=== PATIENT | male | born 1940 | race Caucasian/White ===

== ENCOUNTER 2016-06-22 10:22 | Outpatient (CLI) | payer MEDICARE, BC ==
[2016-06-22 16:57] LABS: Microalbumin-Urine Less than 1.0 mg/dL
== END 2016-06-22 10:23 | disposition home or self-care (01) ==
LOC: MADLAB 10:22
PROVIDERS: ATTEND Family Medicine
DX: E11.9 Type 2 diabetes mellitus without complications (principal); E78.2 Mixed hyperlipidemia
CPT/HCPCS: 36415; 82043

== ENCOUNTER 2016-06-25 07:07 | Outpatient (CLI) | payer MEDICARE, BC ==
[2016-06-25 07:42] LABS: ALT (SGPT) 27 U/L (0-55); AST (SGOT) 24 U/L (5-34); Albumin 3.9 g/dL (3.4-4.8); Alkaline Phosphatase 62 U/L (40-150); Anion Gap 15 mmol/L (10-20); BUN (Urea Nitrogen) 15 mg/dL (8.4-25.7); Bilirubin, Total 0.6 mg/dL (0.2-1.2); Calc. Creatinine Clearance 0 mL/min (70-130); Calcium 9.4 mg/dL (7.8-10.44); Carbon Dioxide 28 mmol/L (23-31); Cardiac Risk 2.8 (Less than 4.5); Chloride 104 mmol/L (98-107); Cholesterol 142 mg/dL (< 200 Desired); Estimated GFR-MDRD 65; Globulin 2.3 g/dL (2.4-3.5); Glucose 118 mg/dL (83-110); HDL Cholesterol 50 mg/dL (>60 Neg Risk); LDL Cholesterol, Calculated 74 mg/dL; Potassium 4.7 mmol/L (3.5-5.1); Protein, Total 6.2 g/dL (5.8-8.1); Sodium 142 mmol/L (136-145); Triglycerides 90 mg/dL (Less than 150)
[2016-06-25 08:11] LABS: Bilirubin Negative (Negative); Blood, Urine Negative (Negative); Clarity Clear (Clear); Glucose, Urine (Dipstick) Negative (Negative); Leukocyte Negative (Negative); Nitrite Negative (Negative); Protein, Urine (Dipstick) Negative (Neg-Trace); Urobilinogen 0.2 mg/dL (0.2-1.0)
[2016-06-25 08:14] LABS: Bacteria/HPF Rare-Few HPF (None Seen); RBC/HPF 0-3 HPF (0-3); Squamous Epithelial None Seen HPF (0-3); WBC/HPF 0-3 HPF (0-3)
[2016-06-25 08:24] LABS: #Basophils 0.1 thou/uL (0.0-0.2); #Eosinphils 0.2 thou/uL (0.0-0.7); #Lymphocytes 1.5 thou/uL (1.20-3.40); #Monocytes 0.6 thou/uL (0.11-0.59); #Neutrophils 3.5 thou/uL (1.40-6.50); %Basophils 1.8 % (0.0-1.0); %Eosinophils 3.4 % (0.0-10.0); %Lymphocytes 25.4 % (21.0-51.0); %Neutrophils 59.5 % (42.0-75.0); Giant Platelets SLIGHT; Hemoglobin 16.8 g/dL (14.0-18.0); MDiff Complete? YES; Mean Corpuscular HGB CONC 32.8 g/dL (32.0-36.0); Mean Corpuscular Hemoglobin 31.3 pg (27.0-31.0); Mean Corpuscular Volume 95.4 fl (80.0-94.0); Mean Platelet Volume 10.8 fL (7.4-10.4); Platelet Count 116 thou/uL (130-400); RBC Distribution Width 13.3 % (11.5-14.5); Red Blood Cell (RBC) Count 5.36 mill/uL (4.70-6.10); White Blood Cell (WBC) Count 5.8 thou/uL (4.8-10.8)
== END 2016-06-25 07:08 | disposition home or self-care (01) ==
LOC: MADLAB 07:07
PROVIDERS: ATTEND Family Medicine
DX: E78.2 Mixed hyperlipidemia (principal); E11.9 Type 2 diabetes mellitus without complications
CPT/HCPCS: 36415; 80053; 80061; 81001; 85025

== ENCOUNTER 2016-12-04 08:44 | Outpatient (CLI) | payer MEDICARE, BC ==
--- NOTE | 2016-12-04 10:28 | RAD ---
SUPINE ABDOMINAL RADIOGRAPH: Date: 12-04-16 History: Renal stone. FINDINGS: Left lateral aspect of the abdomen is excluded from view on this examination. There is mild elevatio n of the right hemidiaphragm. Visualized lung bases otherwise appear clear. No obvious suspicious calcifications are seen overlying the expected location of the renal collectin g systems or along the course of either ureter. Vascular calcifications are seen in the abdominal ao rta involving the iliac arteries. Bowel gas pattern is nonspecific. Lower most pelvis is excluded fr om view. Degenerative changes are seen in the spine. Question of laminectomy defects in the lower karina mbar spine. IMPRESSION: 1. Limited examination, but no obvious calculi are seen overlying the expected location of the renal collecting systems or along the course of either ureter. There is exclusion of the lower pelvis. 2. Nonspecific bowel gas pattern. 3. Mild elevation right hemidiaphragm. 4. Degenerative changes in the spine. 5. Vascular calcifications. POS: KASEY
== END 2016-12-04 08:45 | disposition home or self-care (01) ==
LOC: MADRAD 08:44
PROVIDERS: ATTEND Urology
DX: Z87.442 Personal history of urinary calculi (principal); R14.3 Flatulence; M47.819 Spondylosis without myelopathy or radiculopathy, site unspecified; I70.0 Atherosclerosis of aorta
CPT/HCPCS: 74000

== ENCOUNTER 2017-11-12 11:05 | Emergency (ER) | payer MEDICARE, BC ==
--- NOTE | 2017-11-12 12:55 | CT ---
NONCONTRAST CT HEAD: DATE: 11/12/17. HISTORY: Trauma. The patient fell and hit back of head. COMPARISON: 06/29/17. FINDINGS: Again noted is decreased attenuation of the periventricular white matter likely attributable to moder ate chronic small-vessel ischemic changes. There is no evidence of an acute cortical infarction, hem orrhage, mass effect, or midline shift. Mild cerebral volume loss is again noted. The ventricular s ystem is normal in size, shape, and position for the degree of sulcal atrophy. Vascular calcificatio ns are again seen in the distal vertebral arteries and the carotid siphons. No calvarial fracture is seen. There is minimal scalp soft tissue swelling in the right parietal reg ion. Visualized paranasal sinuses and mastoid air cells are clear. IMPRESSION: 1. No acute intracranial abnormality is demonstrated. 2. Mild scalp soft tissue hematoma in the right parietal region. 3. Chronic small-vessel ischemic change and cerebral volume loss similar to prior study. POS: MIMA
--- NOTE | 2017-11-12 13:06 | CT ---
NONCONTRAST CT CERVICAL SPINE: 11/12/2017 HISTORY: Trauma. The patient fell and hit back of head one hour ago. [place]. The patient has neck pain. COMPARISON: 10/15/2017 TECHNIQUE: Contiguous axial CT images are obtained through the cervical spine, from the skull base to the level of the T2 vertebral body. Sagittal and coronal reformatted images are provided. FINDINGS: No fracture or subluxation is seen involving the cervical spine. Multilevel degenerative changes are again seen throughout the cervical spine, unchanged compared to the study on 10/15/2017, including p rominent facet hypertrophic changes and posterior osteophyte formation and uncinate process hypertrop hy, greatest at the C2-C3, C3-C4, and C4-C5 levels. The prevertebral soft tissues are within normal limits. There is a stable low density nodule within the left lobe of the thyroid gland. The prevertebral sof t tissues are within normal limits. Vascular calcifications are seen in the carotid arteries. IMPRESSION: 1. No acute fracture or subluxation involving the cervical spine. 2. Stable multilevel degenerative changes seen throughout the cervical spine. 3. Stable hypodense nodules, each lobe of the thyroid gland. A thyroid ultrasound may be helpful fo r further evaluation, as noted on the prior study. POS: MIMA
== END 2017-11-12 12:11 | disposition home or self-care (01) ==
LOC: MADERS 11:05
DX: S13.9XXA Sprain of joints and ligaments of unspecified parts of neck, initial encounter (principal); S00.83XA Contusion of other part of head, initial encounter; K21.9 Gastro-esophageal reflux disease without esophagitis; Z87.891 Personal history of nicotine dependence; Z79.84 Long term (current) use of oral hypoglycemic drugs; W17.89XA Other fall from one level to another, initial encounter
CPT/HCPCS: 70450; 72125

== ENCOUNTER 2021-02-14 12:01 | Outpatient (CLI) | payer MEDICARE, BC | END 2021-02-14 12:02 | disposition home or self-care (01) | LOC: MADLAB 12:01 | PROVIDERS: ATTEND Family Medicine | DX: J40 Bronchitis, not specified as acute or chronic (principal) | CPT/HCPCS: 71046 ==

== ENCOUNTER 2024-09-18 04:09 | Emergency (ER) | payer MEDICARE, BC ==
[2024-09-18 04:57] LABS: ALT (SGPT) 27 U/L (Less than 45); AST (SGOT) 56 U/L (11-34); Albumin 3.7 g/dL (3.1-4.5); Alkaline Phosphatase 78 U/L (40-110); Anion Gap 19 mmol/L (10-20); BUN (Urea Nitrogen) 13 mg/dL (8.4-25.7); Bilirubin, Total 1.3 mg/dL (0.3-1.2); Calc. Creatinine Clearance 0 mL/min (70-130); Calcium 9.1 mg/dL (7.8-10.44); Carbon Dioxide 24 mmol/L (23-31); Chloride 102 mmol/L (98-107); Globulin 3.0 g/dL (2.4-3.5); Glucose 130 mg/dL (83-110); Hematocrit 49.0 % (42.0-52.0); Hemoglobin 15.0 g/dL (14.0-18.0); MDiff Complete? YES; Mean Corpuscular Hemoglobin 28.7 pg (27.0-31.0); Mean Corpuscular Volume 93.6 fl (78.0-98.0); Platelet Count 105 10x3/uL (130-400); Potassium 4.6 mmol/L (3.5-5.1); Red Blood Cell (RBC) Count 5.23 mill/uL (4.70-6.10); Sodium 140 mmol/L (136-145); White Blood Cell (WBC) Count 10.0 10x3/uL (4.8-10.8)
[2024-09-18 04:58] LABS: Platelet Adequacy Comment Appears Decreased
[2024-09-18] MEDS ORDERED: Boostrix 0.5 ML (Tdap) VIAL (>/=7 yrs of age) ONE (05:37)
[2024-09-18] MEDS ORDERED: Bacitracin 1 PK ONE (05:37)
== END 2024-09-18 05:55 | disposition home or self-care (01) ==
LOC: MADERS 04:09
DX: S09.90XA Unspecified injury of head, initial encounter (principal); S41.111A Laceration without foreign body of right upper arm, initial encounter; J20.9 Acute bronchitis, unspecified; E11.9 Type 2 diabetes mellitus without complications; I10 Essential (primary) hypertension; E03.9 Hypothyroidism, unspecified; K21.9 Gastro-esophageal reflux disease without esophagitis; E78.00 Pure hypercholesterolemia, unspecified; Z86.73 Personal history of transient ischemic attack (TIA), and cerebral infarction without residual deficits; Z79.899 Other long term (current) drug therapy; Z79.890 Hormone replacement therapy; Z79.84 Long term (current) use of oral hypoglycemic drugs; Z79.01 Long term (current) use of anticoagulants; Z23 Encounter for immunization; W06.XXXA Fall from bed, initial encounter
CPT/HCPCS: 36415; 70450; 71045; 72125; 72170; 80053; 85025; 87426; 90471; 90715; 93005

== ENCOUNTER 2024-10-06 11:24 | Outpatient (CLI) | payer MEDICARE, BC | END 2024-10-06 11:25 | disposition home or self-care (01) | LOC: MADRAD 11:24 | PROVIDERS: ATTEND Pain Medicine Pain Medicine | DX: R91.8 Other nonspecific abnormal finding of lung field (principal) | CPT/HCPCS: 71046 ==

== ENCOUNTER 2024-11-23 08:47 | Emergency (ER) | payer MEDICARE, BC ==
[2024-11-23 13:25] LABS: #Basophils 0.2 thou/uL (0.0-0.2); #Eosinophils 0.1 thou/uL (0.0-0.7); #Lymphocytes 1.8 thou/uL (1.20-3.40); #Monocytes 0.7 thou/uL (0.11-0.59); #Neutrophils 4.3 thou/uL (1.40-6.50); %Basophils 2.2 % (0.0-1.0); %Eosinophils 1.8 % (0.0-10.0); %Lymphocytes 24.9 % (21.0-51.0); %Monocytes 10.2 % (0.0-10.0); %Neutrophils 60.9 % (42.0-75.0); Hematocrit 47.8 % (42.0-52.0); Hemoglobin 15.4 g/dL (14.0-18.0); Mean Corpuscular Hemoglobin 30.1 pg (27.0-31.0); Mean Corpuscular Volume 93.6 fl (78.0-98.0); Platelet Count 128 10x3/uL (130-400); Red Blood Cell (RBC) Count 5.11 mill/uL (4.70-6.10); White Blood Cell (WBC) Count 7.1 10x3/uL (4.8-10.8)
[2024-11-23 13:32] LABS: ALT (SGPT) 20 U/L (Less than 45); AST (SGOT) 28 U/L (11-34); Albumin 3.6 g/dL (3.1-4.5); Alkaline Phosphatase 81 U/L (40-110); Anion Gap 17 mmol/L (10-20); BUN (Urea Nitrogen) 10 mg/dL (8.4-25.7); Bilirubin, Total 1.1 mg/dL (0.3-1.2); Calc. Creatinine Clearance 0 mL/min (70-130); Calcium 9.3 mg/dL (7.8-10.44); Carbon Dioxide 27 mmol/L (23-31); Chloride 102 mmol/L (98-107); Globulin 3.3 g/dL (2.4-3.5); Glucose 159 mg/dL (83-110); Potassium 4.6 mmol/L (3.5-5.1); Sodium 141 mmol/L (136-145)
[2024-11-23 13:39] LABS: Platelet Adequacy Comment Appears Decreased
== END 2024-11-23 13:40 | disposition short-term general hospital (02) ==
LOC: MADERS 08:47
DX: S62.325A Displaced fracture of shaft of fourth metacarpal bone, left hand, initial encounter for closed fracture (principal); S63.267A Dislocation of metacarpophalangeal joint of left little finger, initial encounter; S00.81XA Abrasion of other part of head, initial encounter; I10 Essential (primary) hypertension; E11.9 Type 2 diabetes mellitus without complications; E78.00 Pure hypercholesterolemia, unspecified; E03.9 Hypothyroidism, unspecified; I25.10 Atherosclerotic heart disease of native coronary artery without angina pectoris; I48.91 Unspecified atrial fibrillation; K21.9 Gastro-esophageal reflux disease without esophagitis; Z95.5 Presence of coronary angioplasty implant and graft; Z79.899 Other long term (current) drug therapy; Z86.73 Personal history of transient ischemic attack (TIA), and cerebral infarction without residual deficits; Z79.890 Hormone replacement therapy; Z79.84 Long term (current) use of oral hypoglycemic drugs; Z79.01 Long term (current) use of anticoagulants; W19.XXXA Unspecified fall, initial encounter
CPT/HCPCS: 29125; 36415; 70450; 80053; 85025; 99285

== ENCOUNTER 2024-12-28 15:26 | Outpatient (CLI) | payer MEDICARE, BC ==
[2024-12-28 16:14] LABS: Anion Gap 16 mmol/L (10-20); BUN (Urea Nitrogen) 12 mg/dL (8.4-25.7); Calc. Creatinine Clearance 0 mL/min (70-130); Calcium 8.6 mg/dL (7.8-10.44); Carbon Dioxide 26 mmol/L (23-31); Chloride 103 mmol/L (98-107); Glucose 151 mg/dL (83-110); Potassium 4.1 mmol/L (3.5-5.1); Sodium 141 mmol/L (136-145)
== END 2024-12-28 15:27 | disposition home or self-care (01) ==
LOC: MADLAB 15:26
PROVIDERS: ATTEND Family Medicine
DX: E11.59 Type 2 diabetes mellitus with other circulatory complications (principal)
CPT/HCPCS: 36415; 80048; 82043; 83036

== ENCOUNTER 2025-01-29 09:56 | Emergency (ER) | payer MEDICARE, BC | END 2025-01-29 11:25 | disposition home or self-care (01) | LOC: MADERS 09:56 | DX: S50.311A Abrasion of right elbow, initial encounter (principal); I10 Essential (primary) hypertension; E11.9 Type 2 diabetes mellitus without complications; E78.00 Pure hypercholesterolemia, unspecified; E03.9 Hypothyroidism, unspecified; K21.9 Gastro-esophageal reflux disease without esophagitis; Z79.899 Other long term (current) drug therapy; Z79.890 Hormone replacement therapy; Z79.84 Long term (current) use of oral hypoglycemic drugs; Z86.73 Personal history of transient ischemic attack (TIA), and cerebral infarction without residual deficits; Z79.01 Long term (current) use of anticoagulants; W19.XXXA Unspecified fall, initial encounter; Y93.89 Activity, other specified | CPT/HCPCS: 99282 ==

== ENCOUNTER 2025-01-31 19:10 | Emergency (ER) | payer MEDICARE, BC | END 2025-01-31 20:44 | disposition home or self-care (01) | LOC: MADERS 19:10 | DX: S00.83XA Contusion of other part of head, initial encounter (principal); E11.9 Type 2 diabetes mellitus without complications; I10 Essential (primary) hypertension; E78.00 Pure hypercholesterolemia, unspecified; E03.9 Hypothyroidism, unspecified; K21.9 Gastro-esophageal reflux disease without esophagitis; Z79.01 Long term (current) use of anticoagulants; Z79.84 Long term (current) use of oral hypoglycemic drugs; Z86.73 Personal history of transient ischemic attack (TIA), and cerebral infarction without residual deficits; Z79.899 Other long term (current) drug therapy; Z79.890 Hormone replacement therapy; W01.10XA Fall on same level from slipping, tripping and stumbling with subsequent striking against unspecified object, initial encounter | CPT/HCPCS: 70450; 72125 ==

== ENCOUNTER 2025-02-10 11:51 | Emergency (ER) | payer MEDICARE, BC ==
[2025-02-10 12:38] LABS: Glucose, Urine (Dipstick) Negative (Negative); Leukocyte Small (Negative); Protein, Urine (Dipstick) 30 mg/dL (Neg-Trace); Specific Gravity, Urine 1.015 (1.005-1.030)
[2025-02-10 12:44] LABS: Bacteria/HPF 1+ HPF (None Seen); CAUTI Indications for Culture Alt mental st,lethar; RBC/HPF 0-3 HPF (0-3)
[2025-02-10 12:45] LABS: Mucous/LPF Rare LPF (<2+); Urine Culture Reflex No No
[2025-02-10] MEDS ORDERED: Lidocaine 1% PF 5 ML VIAL ONE (14:27)
[2025-02-10] MEDS ORDERED: cefTRIAXone (ROCEPHIN) 1 GM VIAL ONE (14:28)
== END 2025-02-10 14:45 | disposition home or self-care (01) ==
LOC: MADERS 11:51
DX: S00.93XA Contusion of unspecified part of head, initial encounter (principal); G47.00 Insomnia, unspecified; N39.0 Urinary tract infection, site not specified; E11.40 Type 2 diabetes mellitus with diabetic neuropathy, unspecified; I10 Essential (primary) hypertension; E03.9 Hypothyroidism, unspecified; K21.9 Gastro-esophageal reflux disease without esophagitis; Z79.02 Long term (current) use of antithrombotics/antiplatelets; Z79.01 Long term (current) use of anticoagulants; Z79.84 Long term (current) use of oral hypoglycemic drugs; Z79.890 Hormone replacement therapy; Z79.899 Other long term (current) drug therapy; W01.10XA Fall on same level from slipping, tripping and stumbling with subsequent striking against unspecified object, initial encounter
CPT/HCPCS: 70450; 72125; 81001; 96372; J0696